=== PATIENT | male | born 1975 | race Caucasian/White ===

== ENCOUNTER 2017-07-05 12:50 | Observation (INO) | payer OTHER, SELFPAY ==
[~2017-07-05] VITALS: Ht 185.4 cm; Wt 133.0 kg
[2017-07-05 13:28] LABS: Hematocrit 50.5 % (37.0-53.0); Hemoglobin 17.2 g/dL (13.5-17.5); Mean Corpuscular HGB 30.7 pg (26.0-34.0); Mean Corpuscular HGB Conc 34.1 g/dL (31.5-36.5); Mean Corpuscular Volume 90 fL (80-100); Mean Platelet Volume 10.3 fL (9.1-12.4); Platelet Count 370 K/mm3 (150-400); RDW Coefficient Variation 12.2 % (11.7-14.2); RDW Standard Deviation 39.8 fL (35.1-46.3); White Blood Cell Count 16.74 K/mm3 (4.00-11.30)
[2017-07-05 13:51] LABS: Troponin I 0.381 ng/mL (0.000-0.040)
[2017-07-05 13:52] LABS: Alanine Aminotransfer (ALT/SGP 72 U/L (12-78); Albumin, Blood 4.1 g/dL (3.4-5.0); Alk Phos 79 U/L (50-136); Anion Gap 10 mmol/L (6-16); Aspartate Aminotrans (AST/SGOT 50 U/L (12-37); Bilirubin, Total 0.7 mg/dL (0.1-1.0); Blood Urea Nitrogen 12 mg/dL (8-24); Bun/Creatinine Ratio 17.3 (12.0-20.0); CO2, Blood 23 mmol/L (21-32); Calcium, Blood 9.3 mg/dL (8.5-10.1); Chloride, Blood 103 mmol/L (98-108); Glomerular Filtration Rate >60 (60-); Glucose, Blood 182 mg/dL (70-99); Sodium, Blood 136 mmol/L (136-145); Total Protein, Blood 8.1 g/dL (6.4-8.2)
[2017-07-05 15:02] LABS: D-Dimer, Quantitative 0.21 mg/L FEU (0.00-0.52); International Normalized Ratio 1.04; Prothrombin Time Results 10.8 Sec (9.7-11.5)
[2017-07-05 15:08] LABS: BASOPHILS PERCENT MAN 0 % (0-2); EOSINOPHILS ABSOLUTE MAN 0.16 K/mm3 (0.00-0.68); EOSINOPHILS PERCENT MAN 1 % (0-6); LYMPHOCYTES % ATYPICAL MANUAL 18 % (0-0); LYMPHOCYTES ABSOLUTE MAN 7.03 K/mm3 (0.84-5.20); LYMPHOCYTES PERCENT MAN 24 % (21-46); MONOCYTES ABSOLUTE MAN 0.83 K/mm3 (0.16-1.47); MONOCYTES PERCENT MAN 5 % (4-13); SEG NEUTROPHILS PERCENT MAN 52 % (41-73); TOTAL CELLS COUNTED 100
[2017-07-05 16:30] LABS: U Amphetamine Screen Not Detected; U Barbituate Screen Not Detected; U Benzodiazapine Screen Not Detected; U Buprenorphine Screen Not Detected; U Cannabinoids Screen DETECTED; U Cocaine Screen Not Detected; U Methadone Screen Not Detected; U Methamphetamine Screen Not Detected; U Opiates Screen Not Detected; U Oxycodone Screen DETECTED; U Phencyclidine Screen Not Detected; U Propoxyphene Screen Not Detected
[2017-07-05 22:17] LABS: Troponin I 96.4 ng/mL (0.000-0.040)
[2017-07-05 23:02] LABS: Creatine Kinase MB 236.4 ng/mL (0.0-3.6); Creatine Kinase MB Index 7.6 (0.0-4.0)
[2017-07-06 06:41] LABS: Anion Gap 7 mmol/L (6-16); Blood Urea Nitrogen 9 mg/dL (8-24); Bun/Creatinine Ratio 13.8 (12.0-20.0); CO2, Blood 26 mmol/L (21-32); Chloride, Blood 105 mmol/L (98-108); Creatinine, Blood 0.65 mg/dL (0.60-1.20); Glomerular Filtration Rate >60 (60-); Glucose, Blood 126 mg/dL (70-99); Potassium, Blood 4.3 mmol/L (3.5-5.5); Sodium, Blood 138 mmol/L (136-145)
[2017-07-06 06:44] LABS: Calcium, Blood 8.3 mg/dL (8.5-10.1)
[2017-07-06 07:00] LABS: Creatine Kinase MB 126.9 ng/mL (0.0-3.6); Creatine Kinase MB Index 8.2 (0.0-4.0)
[2017-07-06] MEDS ORDERED: CARV6.25 PO (10:03)
[2017-07-06] MEDS ORDERED: ASPI325 PO (10:03)
[2017-07-06] MEDS ORDERED: ASPI81CH PO (10:04)
[2017-07-06] MEDS ORDERED: CLOP75 PO (10:04)
[2017-07-06] MEDS ORDERED: NICO21TP TOP (10:05)
[2017-07-06] MEDS ORDERED: LISI20 PO (10:05)
[2017-07-06] MEDS ORDERED: SIMV40 PO (10:05)
== END 2017-07-06 11:05 | disposition home or self-care (01) ==
LOC: ER 12:50 → ICUW 12:51 → ICUE 12:51 → ICUW 13:27 → ER 13:27 → ICUE 13:27 → ICUW 14:13 → ICUE 14:13
PROVIDERS: Emergency Medicine; Internal Medicine Interventional Cardiology
PROC: 4A023N7 Measurement of Cardiac Sampling and Pressure, Left Heart, Percutaneous Approach (ICD-10-PCS; principal; 2017-07-05)
PROC: 027034Z Dilation of Coronary Artery, One Artery with Drug-eluting Intraluminal Device, Percutaneous Approach (ICD-10-PCS; principal; 2017-07-05)
PROC: B240ZZ3 Ultrasonography of Single Coronary Artery, Intravascular (ICD-10-PCS; principal; 2017-07-05)
PROC: B2151ZZ Fluoroscopy of Left Heart using Low Osmolar Contrast (ICD-10-PCS; principal; 2017-07-05)
PROC: B241ZZ3 Ultrasonography of Multiple Coronary Arteries, Intravascular (ICD-10-PCS; principal; 2017-07-05)
DX: I21.29 ST elevation (STEMI) myocardial infarction involving other sites (principal); I11.9 Hypertensive heart disease without heart failure; E78.5 Hyperlipidemia, unspecified; R73.9 Hyperglycemia, unspecified; G47.33 Obstructive sleep apnea (adult) (pediatric); F17.210 Nicotine dependence, cigarettes, uncomplicated; Z79.899 Other long term (current) drug therapy; Z23 Encounter for immunization
CPT/HCPCS: 71045; 80048; 80053; 82550; 82553; 83036; 84484; 85025; 85347; 85379; 85610; 85730; 92978; 93005; 93010; 93306; 93454; 96374; 96375; 99152; 99153; 99285; C1725; C1753; C1769; C1874; C1894; C9606; G0378; J0282; J1644; J2250; J3010; J3475; J7030; Q2038; Q9967

== ENCOUNTER 2021-08-01 11:14 | Emergency (ER) | payer BC ==
[~2021-08-01] VITALS: Ht 190.5 cm; Wt 130.6 kg
[~2021-08-01 11:14] MED LIST: ASPI325 PO; ASPI81CH PO; CARV6.25 PO; CLOP75 PO; LISI20 PO; NICO21TP TOP; SIMV40 PO
[2021-08-01] MEDS ORDERED: MELO7.5 PO (11:34)
[2021-08-01] MEDS ORDERED: ATOR40TA PO (11:34)
[2021-08-01] MEDS ORDERED: [UNRECOGNIZED DRUG - CODE] PO (11:34)
[2021-08-01] MEDS ORDERED: PROP10 PO (11:35)
[2021-08-01 11:54] LABS: BASOPHILS ABSOLUTE AUTO 0.03 K/mm3 (0.00-0.23); BASOPHILS PERCENT AUTO 0 % (0-2); EOSINOPHILS ABSOLUTE AUTO 0.02 K/mm3 (0.00-0.68); EOSINOPHILS PERCENT AUTO 0 % (0-6); Hematocrit 38.8 % (37.0-53.0); Hemoglobin 13.5 g/dL (13.5-17.5); IMMATURE GRAN ABSOLUTE AUTO 0.02 K/mm3 (0.00-0.10); IMMATURE GRAN PERCENT AUTO 0 % (0-1); LYMPHOCYTES PERCENT AUTO 23 % (21-46); MONOCYTES ABSOLUTE AUTO 0.62 K/mm3 (0.16-1.47); MONOCYTES PERCENT AUTO 8 % (4-13); Mean Corpuscular HGB 31.5 pg (26.0-34.0); Mean Corpuscular HGB Conc 34.8 g/dL (31.5-36.5); Mean Corpuscular Volume 91 fL (80-100); Mean Platelet Volume 9.9 fL (9.1-12.4); NEUTROPHILS ABSOLUTE AUTO 5.58 K/mm3 (1.96-9.15); NEUTROPHILS PERCENT AUTO 68 % (41-73); Platelet Count 253 K/mm3 (150-400); RDW Coefficient Variation 12.4 % (11.7-14.2); RDW Standard Deviation 40.6 fL (35.1-46.3); Red Blood Cell Count 4.28 M/mm3 (4.30-5.90); White Blood Cell Count 8.17 K/mm3 (4.00-11.30)
[2021-08-01 12:27] LABS: Alanine Aminotransfer (ALT/SGP 71 U/L (12-78); Albumin, Blood 3.8 g/dL (3.4-5.0); Albumin/Globulin Ratio 1.2 (0.8-1.8); Alk Phos 51 U/L (50-136); Anion Gap 7 mmol/L (6-16); Aspartate Aminotrans (AST/SGOT 33 U/L (12-37); Bilirubin, Total 1.1 mg/dL (0.1-1.0); Blood Urea Nitrogen 10 mg/dL (8-24); Bun/Creatinine Ratio 13.5 (12.0-20.0); CO2, Blood 28 mmol/L (21-32); Calcium, Blood 9.2 mg/dL (8.5-10.1); Chloride, Blood 103 mmol/L (98-108); Creatinine, Blood 0.74 mg/dL (0.60-1.20); Globulin, Blood 3.2 g/dL (2.2-4.0); Glomerular Filtration Rate >60 (60-); Glucose, Blood 191 mg/dL (70-99); Potassium, Blood 3.7 mmol/L (3.5-5.5); Sodium, Blood 138 mmol/L (136-145)
== END 2021-08-01 14:20 | disposition home or self-care (01) ==
LOC: ER 11:14
PROVIDERS: Physician Assistant
DX: R07.89 Other chest pain (principal); M25.512 Pain in left shoulder; F17.210 Nicotine dependence, cigarettes, uncomplicated; I25.2 Old myocardial infarction; E78.5 Hyperlipidemia, unspecified; I10 Essential (primary) hypertension; G47.33 Obstructive sleep apnea (adult) (pediatric); Z79.82 Long term (current) use of aspirin; Z79.899 Other long term (current) drug therapy
CPT/HCPCS: 71046; 80053; 83690; 83880; 84484; 85025; 93005; 93010; 99285-25; A9270

== ENCOUNTER → 2024-02-05 | Outpatient (CLI) | payer OTHER ==
[~2024-02-05] MED LIST changes: +ATOR40TA PO; +MELO7.5 PO; +PROP10 PO; +[UNRECOGNIZED DRUG - CODE] PO
[2024-02-05 16:50] LABS: BASOPHILS ABSOLUTE AUTO 0.05 K/mm3 (0.00-0.23); BASOPHILS PERCENT AUTO 1 % (0-2); EOSINOPHILS ABSOLUTE AUTO 0.08 K/mm3 (0.00-0.68); EOSINOPHILS PERCENT AUTO 1 % (0-6); Hemoglobin 14.9 g/dL (13.5-17.5); IMMATURE GRAN ABSOLUTE AUTO 0.02 K/mm3 (0.00-0.10); IMMATURE GRAN PERCENT AUTO 0 % (0-1); LYMPHOCYTES ABSOLUTE AUTO 2.89 K/mm3 (0.84-5.20); LYMPHOCYTES PERCENT AUTO 31 % (21-46); MONOCYTES ABSOLUTE AUTO 0.78 K/mm3 (0.16-1.47); MONOCYTES PERCENT AUTO 8 % (4-13); Mean Corpuscular HGB 31.4 pg (26.0-34.0); Mean Corpuscular HGB Conc 34.7 g/dL (31.5-36.5); Mean Corpuscular Volume 91 fL (80-100); Mean Platelet Volume 9.7 fL (9.1-12.4); NEUTROPHILS ABSOLUTE AUTO 5.62 K/mm3 (1.96-9.15); NEUTROPHILS PERCENT AUTO 60 % (41-73); Platelet Count 292 K/mm3 (150-400); RDW Coefficient Variation 12.3 % (11.7-14.2); RDW Standard Deviation 40.3 fL (35.1-46.3); Red Blood Cell Count 4.74 M/mm3 (4.30-5.90); White Blood Cell Count 9.44 K/mm3 (4.00-11.30)
[2024-02-05 16:59] LABS: Albumin, Blood 3.9 g/dL (3.4-5.0); Bilirubin, Total 0.9 mg/dL (0.1-1.0); Bun/Creatinine Ratio 16.2 (12.0-20.0); Creatinine, Blood 1.05 mg/dL (0.60-1.20); Globulin, Blood 4.1 g/dL (2.2-4.0); Potassium, Blood 4.1 mmol/L (3.5-5.5)
== END | disposition home or self-care (01) ==
LOC: LAB 16:44 → LAB SHORT 16:44
PROVIDERS: Physician Assistant
DX: R10.84 Generalized abdominal pain (principal)
CPT/HCPCS: 80053; 83690; 85025

== ENCOUNTER 2024-09-03 09:10 | Day surgery (SDC) | payer OTHER ==
[~2024-09-03] VITALS: Ht 188 cm; Wt 107.0 kg
[~2024-09-03 09:10] MED LIST changes: +Cyclobenzaprine5 MG PO; +HYDCHL25 PO; +Lactated Ringer's 1,000 ML IV SCH; +NITR.4SL SL; +PARO20 PO; +POTA10T PO
[2024-09-03] MEDS ORDERED: JARDIANCE25 MG PO (09:52)
[2024-09-03 10:00] VITALS: BP 155/89
[2024-09-03] MEDS ORDERED: Midazolam HCl 1MG / ML 2ML Vial ONE (10:41)
[2024-09-03] MEDS ORDERED: propofoL 40 ML IV ONE (10:41)
[2024-09-03] MEDS ORDERED: propofoL 20 ML IV ONE (10:47)
--- NOTE | 2024-09-03 11:01 | NUR ---
09/03/24 1101 Estrella Ricks [facility] [place]; SEE ANESTHESIA RECORDS.
[2024-09-03 11:20] VITALS: BP 113/81
--- NOTE | 2024-09-03 11:21 | NUR ---
REPORT RECEIVED FROM RAHEEM REYNOLDS. VSS. PT ON RA. PT [id number]. PT ABLE TO REPOSITION SELF IN BED. PT REQUESTING PO FLUIDS AND TOLERATING THEM WELL. PT DENIES PAIN, NAUSEA OR DISCOMFORTS.
[2024-09-03 11:35] VITALS: BP 126/85
--- NOTE | 2024-09-03 11:43 | NUR ---
Patient up to Ambulate independently. Gait steady. VSS AND CONSISTENT WITH PT BASELINE. PT HAS NO COMPLAINTS AND VERBALIZES READINESS TO GO HOME. Discharge instructions reviewed with patient AND HIS SPOUSE. Patient verbalizes understanding. Copy given to patient to take home. Patient States Post-Procedure ride home has been arranged. Discharged via wheelchair to private car for ride home. PT BELONGINGS RETURNED TO PT.
== END 2024-09-03 11:42 | disposition home or self-care (01) ==
LOC: ORSCMMR 09:10 → ORD 10:30 → ORSCMMR 10:30
PROVIDERS: Internal Medicine Gastroenterology
PROC: 0DBK8ZX Excision of Ascending Colon, Via Natural or Artificial Opening Endoscopic, Diagnostic (ICD-10-PCS; principal; 2024-09-03 10:30)
PROC: 0DBM8ZX Excision of Descending Colon, Via Natural or Artificial Opening Endoscopic, Diagnostic (ICD-10-PCS; principal; 2024-09-03 10:30)
DX: Z12.11 Encounter for screening for malignant neoplasm of colon (principal); R19.5 Other fecal abnormalities; D12.2 Benign neoplasm of ascending colon; K63.5 Polyp of colon; I10 Essential (primary) hypertension; E11.9 Type 2 diabetes mellitus without complications; G47.33 Obstructive sleep apnea (adult) (pediatric); E78.5 Hyperlipidemia, unspecified; I25.10 Atherosclerotic heart disease of native coronary artery without angina pectoris; I25.2 Old myocardial infarction; E66.9 Obesity, unspecified; Z68.32 Body mass index [BMI] 32.0-32.9, adult; Z79.02 Long term (current) use of antithrombotics/antiplatelets; Z79.84 Long term (current) use of oral hypoglycemic drugs; Z79.899 Other long term (current) drug therapy; Z79.82 Long term (current) use of aspirin; Z87.891 Personal history of nicotine dependence
CPT/HCPCS: 82947; 88305; J2250; J2704; J7120